=== PATIENT | female | born 1945 | race Caucasian/White ===

== ENCOUNTER 2018-04-06 09:39 | Outpatient (CLI) | payer OTHER ==
--- NOTE | 2018-04-07 16:47 | MRI ---
EXAM: Lumbar spine MRI without contrast. HISTORY: Low back pain. COMPARISON: None. TECHNIQUE: Multiplanar, multisequence MR images were acquired of the lumbar spine without contrast. FINDINGS: Conus medullaris ends at L1 and has normal morphology and signal intensity. Transitional spinal anatomy is present at the lumbosacral junction. The first [id number] vertebra is numbere d L1 and L5 is considered a transitional vertebra with a pseudoarticulation between the left L5 trans verse process and the sacrum and right sacralization with a small residual physeal scar. There is a small L5-S1 intervertebral disc. The lumbar vertebra are normal in height. Intrinsic bone marrow sig nal is mildly heterogeneous. There is mild thoracolumbar levoscoliosis centered at T12-L1 and mild a ccentuation of the usual lumbar lordosis with 1.5 mm anterolisthesis of L3 on L4. At T12-L1, there i s a diffuse disc osteophyte complex that is asymmetric to the right with moderate to marked right lat eral disc space narrowing that is greatest right laterally with mild endplate irregularity and modera tely extensive modic type 1 right lateral changes. There is disc desiccation at T12-L1 and developin g disc desiccation at L2-3 and L3-4. At L4-5, there is a diffuse disc osteophyte complex with marked disc space narrowing, mild to moderate endplate irregularity and moderate modic type 2 central endpl ate changes. A small disc is present at L5-S1. The partially visualized liver, spleen and kidneys are unremarkable. Scattered descending and sigmoid colonic diverticula are present without diverticulitis. T12-L1: There is a diffuse spondylotic disc bulge with moderate right anterolateral endplate osteoph ytes that may contact the right T12 nerve exiting the neural foramen. Mild bilateral facet arthropat hy and ligamentum flavum hypertrophy is present. These findings cause mild to moderate right neural foraminal stenosis. There is no central canal stenosis. L1-2: The intervertebral disc is normal. There is no central canal stenosis or foraminal stenosis. L2-3: There is a mild disc bulge that is asymmetric to the left which narrows the inferior left neur al foramen and mild bilateral facet arthropathy and ligamentum flavum hypertrophy, greater on the lef t. This causes mild left neural foraminal stenosis. There is no central canal stenosis. L3-4: There is a mild disc bulge and bilateral hypertrophic facet arthropathy and ligamentum flavum hypertrophy. This causes minor bilateral foraminal stenosis. There is prominent dorsal epidural fat and minor central canal stenosis. AP diameter of the thecal sac 9.5 mm. L4-5: There is a diffuse disc osteophyte complex with the disc component larger than the osteophyte component that effaces the ventral thecal sac, encroaches on both L5 nerves in the lateral recesses a nd encroaches on both L4 nerves exiting neural foramina. This narrows the inferior neural foramina b ilaterally and there is mild left and minor right facet arthropathy and ligamentum flavum hypertrophy . These findings cause left lateral recess stenosis with encroachment on the left L5 nerve roots and mild to moderate bilateral foraminal stenosis. L5-S1: There is a rudimentary intervertebral disc without herniation. Neural foramina are patent. 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 IMPRESSION: 1. Mild thoracolumbar levoscoliosis centered at T12-L1 with moderate discogenic disease at T12-L1 th at is asymmetric to the right and moderately extensive right lateral modic type 1 endplate changes. T his may be due to increased stress or motion on this level. 2. Moderate discogenic disease L4-5 which encroaches on both L5 nerves in the lateral recesses and b oth L4 nerves exiting the neural foramina. 3. Mild to moderate right T12-L1 and mild to moderate bilateral L4-5 neural foraminal stenosis. 4. 1.5 mm degenerative anterolisthesis L3 on L4. 5. Transitional lumbar spinal anatomy. 6. Colonic diverticulosis without diverticulitis.
== END 2018-04-06 09:40 | disposition home or self-care (01) ==
LOC: RAD 09:39
PROVIDERS: ATTEND Nurse Practitioner Family
DX: M54.5 Low back pain (principal)